=== PATIENT | female | born 2000 | race Caucasian/White ===

== ENCOUNTER 2024-05-08 02:07 | Outpatient (CLI) | payer OTHER, SELFPAY ==
[2024-05-08 15:13] LABS: Panorama Kit Sent via Fed Ex
[2024-05-08 15:18] LABS: Abs Immature Grans 0.03 10^3/uL (0.0-0.06); Absolute Basophil Count 0.03 10^3/uL (0.0-0.2); Absolute Eosinophil Count 0.09 10^3/uL (0.0-0.7); Absolute Lymphocyte Count 1.48 10^3/uL (1.2-3.4); Absolute Monocyte Count 0.37 10^3/uL (0.1-0.8); Absolute Neutrophil Count 7.73 10^3/uL (1.2-6.7); Basophils % 0.3 %; Eosinophils % 0.9 %; HCT 40.2 % (36.0-46.0); HGB 13.7 g/dL (11.2-15.7); Immature Grans % 0.3 %; Lymphocytes % 15.2 %; MCH 30.6 pg (27.0-33.0); MCHC 34.1 % (32.0-36.0); MCV 90 fL (80-95); MPV 10.4 fL (8.0-11.0); Monocytes % 3.8 %; Neutrophils % 79.5 %; Platelet Count 208 10^3/uL (130-400); RBC 4.47 10^6/uL (3.93-5.22); RDW 12.2 % (11.7-14.6); RDW-SD 40.2 fL; WBC 9.73 10^3/uL (4.4-10.8)
[2024-05-08 16:46] LABS: TSH (W/Ref FT4) 0.74 uIU/mL (0.36-3.74)
[2024-05-09 08:57] LABS: Hepatitis B Surface Ag Negative (Negative)
[2024-05-09 09:35] LABS: HIV-1/2 Ag & Ab Screen Negative (Negative)
[2024-05-09 09:46] LABS: Hepatitis C Ab w Rflx HCV PCR Negative (Negative)
[2024-05-09 10:28] LABS: Varicella IgG Antibody Positive (See Note)
[2024-05-09 10:31] LABS: Rubella IgG Ab (UVM) Negative (See Note)
[2024-05-10 20:26] LABS: Syphilis IgG w/Reflex Nonreactive (Nonreactive)
[2024-05-12 23:03] LABS: Specimen WB Whole Blood
[2024-05-30 17:52] LABS: Result Summary NEGATIVE; Specimen WB Whole Blood
== END 2024-05-08 02:08 | disposition home or self-care (01) ==
LOC: LBO 02:07
PROVIDERS: Visit Provider Advanced Practice Midwife
DX: Z34.91 Encounter for supervision of normal pregnancy, unspecified, first trimester (principal)
CPT/HCPCS: 36415; 81220; 81222; 81329; 86787; 86803; 86850; 86900; 86901; 87340; 87389; 84443; 85025; 86762; 86780

== ENCOUNTER 2024-05-08 13:44 | Outpatient (REF) | payer OTHER, SELFPAY ==
[2024-05-10 13:25] LABS: Chlamydia Result Negative (Negative); GC Result Negative (Negative)
== END 2024-05-08 13:45 | disposition home or self-care (01) ==
LOC: LBN 13:44
PROVIDERS: Visit Provider Advanced Practice Midwife
DX: Z34.91 Encounter for supervision of normal pregnancy, unspecified, first trimester (principal); Z11.3 Encounter for screening for infections with a predominantly sexual mode of transmission; Z3A.11 11 weeks gestation of pregnancy
CPT/HCPCS: 87491; 87591; 87086

== ENCOUNTER 2024-08-21 03:08 | Outpatient (CLI) | payer OTHER, SELFPAY ==
[2024-08-21 15:03] LABS: HCT 34.5 % (36.0-46.0); HGB 11.6 g/dL (11.2-15.7); MCHC 33.6 % (32.0-36.0); MCV 92 fL (80-95); MPV 10.5 fL (8.0-11.0); Platelet Count 164 10^3/uL (130-400); RBC 3.74 10^6/uL (3.93-5.22); RDW-SD 41.2 fL
[2024-08-21 15:51] LABS: Glucose,1 Hr (Glucola) 76 mg/dL (80-140)
== END 2024-08-21 03:09 | disposition home or self-care (01) ==
LOC: LBO 03:08
PROVIDERS: Visit Provider Advanced Practice Midwife
DX: Z34.92 Encounter for supervision of normal pregnancy, unspecified, second trimester (principal)
CPT/HCPCS: 36415; 82950; 85027

== ENCOUNTER 2024-10-25 15:46 | Outpatient (REF) | payer OTHER, SELFPAY | END 2024-10-25 15:47 | disposition home or self-care (01) | LOC: LBN 15:46 | PROVIDERS: Visit Provider Obstetrics & Gynecology Gynecology | DX: Z34.93 Encounter for supervision of normal pregnancy, unspecified, third trimester (principal) | CPT/HCPCS: 87186; 87081 ==

== ENCOUNTER 2024-11-16 16:00 | Outpatient (CLI) | payer OTHER, SELFPAY ==
[2024-11-16 16:55] VITALS: BP 122/70; PULSE 70; TEMP 36.4
[2024-11-16 17:00] VITALS: BP 122/70; PULSE 77
--- NOTE | 2024-11-16 17:41 | W.OBNST ---
Date of service: 11/16/24 Time of Service: 17:41 NST Evaluation Reason for NST Reasons for Nonstress Test: DECREASED MOVEMENT Gestational Age Gestational Age in Weeks and Days: 39 Weeks and 4Days Test and Monitor Explained Test/Monitor Explained: Test Explained, Monitor Explained and Patient Verbalized Understanding Vital Signs Blood Pressure: 122/70 Pulse: 70 Temperature: 97.6 F NST Information Date on Monitor: 11/16/24 Time on Monitor: 16:56 Date off Monitor: 11/16/24 Time off Monitor: 17:29 Total Time on Monitor: 33 NST Interventions: PO Hydration and Reposition Patient Contraction Frequency: 0 NST Evaluation Patient States Movement: Present FHR Baseline: 140 Variability: Moderate 6-25 bpm Accelerations: 15x15 Decelerations: None NST Results: Reactive Note Ultrasound Done: N/A. NST Note Note: Cx: 1/50/-2/soft. Pt reported mild headache but not too bad, could ignore it if busy. Feels tired, arms feel slightly swollen and tingly but able to do activities, worse in the am. No fever, sore throat, cough. No n/v. Had ctxs a few nights earlier this week but non last night or today. Reviewed signs of labor and reasons to call. Also discussed the possibility of a viral illness and supportive measures. Sent script for valtrex and recommend taking now as it wasn't started earlier. NST Reviewed and Verified by: Montse Reich
[2024-11-16 17:43] VITALS: BP 122/70; PULSE 70; TEMP 36.4
== END 2024-11-16 17:41 | disposition home or self-care (01) ==
LOC: BCD 16:03 → OBS 16:40
PROVIDERS: Visit Provider Obstetrics & Gynecology
DX: O36.8130 Decreased fetal movements, third trimester, not applicable or unspecified (principal); R51.9 Headache, unspecified; Z3A.39 39 weeks gestation of pregnancy
CPT/HCPCS: 59025

== ENCOUNTER 2024-11-20 03:20 | Outpatient (CLI) | payer OTHER, SELFPAY ==
[2024-11-20] VITALS (12 sets, daily range): BP systolic 98–118; BP diastolic 57–82; PULSE 71–79; RESP 16; TEMP 36.4; O2SAT 93–98
[2024-11-20 05:45] LABS: COVID-19 PCR Negative (Negative); Influenza A PCR Negative (Negative); Influenza B PCR Negative (Negative); RSV PCR Negative (Negative)
[2024-11-20 05:47] LABS: Source Nasopharynx
--- NOTE | 2024-11-20 12:37 | W.OBNST ---
Date of service: 11/20/24 Time of Service: 05:00 NST Evaluation Reason for NST Reasons for Nonstress Test: OTHER, SEE COMMENT Reason for NST Other: Headache Gestational Age Gestational Age in Weeks and Days: 40 Weeks and 1Days Test and Monitor Explained Test/Monitor Explained: Test Explained, Monitor Explained and Patient Verbalized Understanding Vital Signs Blood Pressure: 104/62 Pulse: 77 Temperature: 97.6 F Urine Results Urine Protein: Positive Urine Ketones: Positive Urine Glucose: Negative Urine Blood: Positive NST Information Date on Monitor: 11/20/24 Time on Monitor: 04:50 Date off Monitor: 11/20/24 Time off Monitor: 05:48 Total Time on Monitor: 58 NST Evaluation Patient States Movement: Present FHR Baseline: 120 Variability: Moderate 6-25 bpm Accelerations: 15x15 Decelerations: None NST Results: Reactive Note Ultrasound Done: N/A. NST Note Note: Normal BPs, neg for flu/covid. Pt dehydrated. Recommend fluids, rest, can take benadryl for sleep, magnesium for headache. Has appt tomorrow. NST Reviewed and Verified by: Montse Reich
== END 2024-11-20 06:13 | disposition other institution (70) ==
LOC: BCD 04:51 → OBS 05:03
PROVIDERS: Visit Provider Obstetrics & Gynecology
DX: O26.893 Other specified pregnancy related conditions, third trimester (principal); R51.9 Headache, unspecified; Z3A.40 40 weeks gestation of pregnancy
CPT/HCPCS: 59025; 87637

== ENCOUNTER 2024-11-21 07:14 | Outpatient (CLI) | payer OTHER, SELFPAY ==
[2024-11-21 07:56] VITALS: BP 117/75; PULSE 66; TEMP 36.5
[2024-11-21 08:07] VITALS: BP 117/75; PULSE 66
[2024-11-21 09:02] VITALS: BP 117/75; PULSE 66; TEMP 36.5
--- NOTE | 2024-11-21 09:02 | W.OBNST ---
Date of service: 11/21/24 Time of Service: 09:02 NST Evaluation Reason for NST Reasons for Nonstress Test: OTHER, SEE COMMENT Reason for NST Other: rule out labor Gestational Age Gestational Age in Weeks and Days: 40 Weeks and 2Days Test and Monitor Explained Test/Monitor Explained: Test Explained, Monitor Explained and Patient Verbalized Understanding Vital Signs Blood Pressure: 117/75 Pulse: 66 Temperature: 97.7 F Urine Results Urine Protein: Negative Urine Ketones: Negative Urine Glucose: Negative Urine Blood: Negative NST Information Date on Monitor: 11/21/24 Time on Monitor: 08:00 Date off Monitor: 11/21/24 Time off Monitor: 08:44 Total Time on Monitor: 44 NST Interventions: PO Hydration Contraction Frequency: irregular NST Evaluation Patient States Movement: Present FHR Baseline: 135 Variability: Moderate 6-25 bpm Accelerations: 15x15 Decelerations: None NST Results: Reactive Note Ultrasound Done: N/A. NST Note Note: Patient seen. Latent labor. Irregular contractions. No cervical dilation. Category 1, reactive NST. Offered therapeutic rest in hospital, or at home. All questions answered. NST Reviewed and Verified by: Erika Nolasco
== END 2024-11-21 09:26 ==
LOC: BCD 07:16 → OBS 07:55
PROVIDERS: Visit Provider Obstetrics & Gynecology
DX: O62.0 Primary inadequate contractions (principal); Z3A.40 40 weeks gestation of pregnancy
CPT/HCPCS: 59025

== ENCOUNTER 2024-11-22 01:26 | Inpatient (IN) | payer OTHER, SELFPAY ==
[2024-11-22] VITALS (44 sets, daily range): BP systolic 106–148; BP diastolic 55–87; PULSE 65–136; RESP 16–20; TEMP 36.5–36.8; O2SAT 87–100; BMI 40.6
--- NOTE | 2024-11-22 01:18 | HPE_ITS ---
Date of service: 11/22/24 Time of Service: 01:18 Assessment and Plan Assessment and plan (1) : Status: Acute Assessment and plan: Term , early active labor, 4 cm, 80%. Appropriate cervical change. Will use nitrous oxide initially for pain control. May request epidural for analgesia. Anticipate vaginal . (2) GBS (group B Streptococcus carrier), +RV culture, currently : Status: Acute Assessment and plan: Currently in active labor. Group B strep positive. Penicillin allergic. Clindamycin sensitive. OB-HPI Labor/Delivery History of Present Illness Reason for Visit: Labor Chief Complaint: Uterine Contractions (every 5 miniutes). MANSOOR Calculator Estimated Delivery Date Method Current WG Current Estimate 11/19/24 LMP (Certain) 40w 3d Other Estimates 11/19/24 Ultrasound #1 40w 3d Comments: Patient presented to the center early this morning with painful regular contractions approximately every 5 minutes. She had been evaluated yesterday morning for the same with contractions every 10 minutes with no significant cervical dilation. She did denies vaginal bleeding or loss of fluid. Baby's been moving and active. Patient is exhausted. She is group B strep positive with a penicillin allergy though her group B strep is sensitive to clindamycin. That was ordered for prophylaxis. She has no HSV prodrome or active lesions noted. History of Present Expected Delivery Route/Plan - MD PEDERSEN/elver Perez (has 2 teen boys, healthy) Rubella non-immune, offer MMR SILVINA Brock yes to circumcision Specific Issues/Plan 1. Desires cfDNA - neg, CF & SMA negative, declined AFP 2. 5P screen negative, PHQ9 score is 4 3. Hx narcolepsy, stopped Adderall, will monitor, taking it PRN. 4. 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 PCN rash in childhood, [place] [facility] [place] No appointments available until March, will do on-line consultation 5a. [facility] [place] Skin testing: no PCN allergy. Progess note scanned into chart. 6. GBS+ - Susceptible to Clindamycin Review of Systems All systems reviewed & are unremarkable except as noted in HPI and below Constitutional Constitutional: Reports as per HPI Eyes Eyes: Reports system reviewed and no additional complaints, except as documented ENT Ears, Nose, Mouth, and Throat: Reports system reviewed and no additional complaints, except as documented Cardiovascular Cardiovascular: Reports system reviewed and no additional complaints, except as documented Respiratory Respiratory: Reports system reviewed and no additional complaints, except as documented Gastrointestinal Gastrointestinal: Reports system reviewed and no additional complaints, except as documented Genitourinary Genitourinary: Reports as per HPI Musculoskeletal Musculoskeletal: Reports system reviewed and no additional complaints, except as documented Psychiatric Psychiatric: Reports system reviewed and no additional complaints, except as documented PFSH All Active Problems (Updated 11/22/24 @ 01:24 by Erika Nolasco DO) GBS (group B Streptococcus carrier), +RV culture, currently (Acute) Penicillin allergic, clindamycin sensitive Penicillin-induced allergic rash (Acute) Rubella non-immune status, antepartum (Acute) Narcolepsy (Acute) (Acute) History of herpes genitalis (Acute) Medical History (Updated 11/22/24 @ 01:24 by Erika Nolasco DO) Delayed menses Early stage of Herpes Chlamydia Anxiety Depression Asthma Family History Other Diabetes Thyroid disease Social History Smoking/Tobacco Use Status: Never Second Hand Exposure: No Smoking risk assessment performed?: Yes Alcohol Intake: never Drug use: Occasionally Substance use type: marijuana Household members: significant other 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[employer]) Sexually active: Yes Current gender identity: female What is your relationship status?: living with partner Panel score (0-1 are the most socially isolated patients): 1 What type of physical activity do you participate in: none Seatbelt use: always Helmet use: Yes Do you feel safe at home: Yes Do you feel safe in your relationship?: Yes Female Reproductive History Menstrual Age of Menarche: 10 control method: none History History 3 Para 0 Hx # Term Pregnancies 0 Multiple births 0 Hx # Pregnancies 0 Ectopic pregnancies 0 AB induced 1 Hx Number of Living Children 0 AB spontaneous 1 Meds Allergies and Home Medications Allergies Allergy/AdvReac Type Severity Reaction Status Date / Time Penicillins Allergy Mild Skin Rash Verified 11/13/24 14:40 Home Medications ?Medication ?Instructions ?Recorded ?Confirmed ?Type PNV 153-FA 400 mcg-om3 35 mg-dha 2 tab PO DAILY 06/05/24 11/21/24 History 25 mg-epa 5 mg-fish oil chew tablet ( Gummies) valacyclovir 1 gram tablet 1,000 mg PO DAILY #30 tabs 11/16/24 11/21/24 Rx zolpidem 5 mg tablet (Ambien) 5 mg PO QHS #4 tabs 11/21/24 11/21/24 Rx Exam Physical Exam Vital Signs Reviewed: Yes Constitutional Constitutional: moderate distress (Due to painful uterine contractions) Detailed Labor and Delivery Exam Dilation: 4 Effacement (%): 80 station: -1 Cervix position: posterior Consistency: soft Blanco Score: Cervical Points Exam 0 1 2 3 Dilation Closed 1-2cm 3-4 cm 5-6cm Effacement 0-30% 40-50% 60-70% 80% Consistency Firm Medium Soft Station -3 -2 -1,0 +1,+2 Position Posterior Mid Anterior BLANCO Score(Cervical Ripeness Score): 9 Amniotic Membrane Status: Intact Contraction Frequency(min): 4 Contraction Duration(sec): 60 Contraction Intensity: Moderate/Strong Fetus A Heart Rate Baseline: 140 Monitor Accelerations: Present Monitor Decelerations: None Variability: Moderate (6-25 BPM) Presentation: Cephalic Categories: Category I Est. Weight: 8 lb HEENT Exam HEENT Exam: Normal Neck Exam Neck Exam: Normal Respiratory Exam Respiratory Exam: Normal Cardiovascular Exam Cardiovascular Exam: Normal Abdominal Exam Abdominal Exam: Normal Exam Exam: Normal Extremities Exam Extremities Exam: Normal Back/Spine/Pelvis Exam Pelvis Adequate: Yes Skin Exam Skin Exam: Normal Neurological Exam Neurological Exam: Normal Risk Assessment Risk for Shoulder Dystocia Historical/Initial OB: NEGATIVE FOR: Pelvic Abnormality, Pre- BMI>30, Previous Shoulder Dystocia or Previous Macrosomia 36 Weeks: POSITIVE FOR: Maternal Weight Gain>40lbs Increased Risk?: No Date/Initial: KJ 11/22/2024 Delivery Plan @ 40 wks: Anticipate vaginal Risk for Pre-Eclampsia Date Initiated/Initials: not indicated, jk Yes, if one or more: NEGATIVE FOR: Hx Pre-E/Gest HTN, Chronic HTN, Multiple Gestation, Pre-gestational DM, Renal Disease, Systemic Lupus or APA Syndrome Yes, if 2 or more: POSITIVE FOR: Nulliparity; NEGATIVE FOR: Age>= 35 yrs, >10yr btwn pregnancies, BMI>30, ethinicty, Mother/Sister w/ Pre-E or Previous IUGR Risk for Post- Hemorrhage Initial: NEGATIVE FOR: Multiple Gestation, Previous PPH, Known Clotting Deficiency, Grand Multiparity or Anticoagulation At Risk?: No Counseled re: Active Management: Yes Date/Initials: BEBA 11/22/2024 Risks Reviewed Risks Reviewed Upon Admission: Yes
[2024-11-22] MEDS: CLINDAMYCIN 900 MG/50 ML BAG 50 MG IVPB ×2 (01:50→09:22)
[2024-11-22 01:52] LABS: HCT 37.1 % (36.0-46.0); HGB 12.1 g/dL (11.2-15.7); MCH 28.8 pg (27.0-33.0); MCHC 32.6 % (32.0-36.0); MCV 88 fL (80-95); MPV 10.9 fL (8.0-11.0); Platelet Count 186 10^3/uL (130-400); RDW 13.3 % (11.7-14.6); RDW-SD 43.2 fL; WBC 11.14 10^3/uL (4.4-10.8)
[2024-11-22] MEDS: Normal Saline Flush 10 ML SYR IVP ×2 (02:11→07:28)
--- NOTE | 2024-11-22 04:20 | W.PM.OBNL1 ---
Date of service: 11/22/24 Time of Service: 04:20 Objective Abnormal lab results 11/22/24 Range/Units 01:40 WBC 11.14 H (4.4-10.8) 10^3/uL Temp Pulse Resp BP Pulse Ox 97.9 F 71 17 117/78 98 11/22/24 01:59 11/22/24 02:10 11/22/24 01:59 11/22/24 02:10 11/22/24 01:59 Laboratory Results WBC 11.14 10^3/uL (4.4-10.8) H 11/22/24 01:40 RBC 4.20 10^6/uL (3.93-5.22) 11/22/24 01:40 Hgb 12.1 g/dL (11.2-15.7) 11/22/24 01:40 Hct 37.1 % (36.0-46.0) 11/22/24 01:40 MCV 88 fL (80-95) 11/22/24 01:40 MCH 28.8 pg (27.0-33.0) 11/22/24 01:40 MCHC 32.6 % (32.0-36.0) 11/22/24 01:40 RDW 13.3 % (11.7-14.6) 11/22/24 01:40 Plt Count 186 10^3/uL (130-400) 11/22/24 01:40 MPV 10.9 fL (8.0-11.0) 11/22/24 01:40 ABO/Rh O Positive 11/22/24 01:40 Antibody Screen NEGATIVE 11/22/24 01:40 Subjective Interval history since last seen: Contractions are stronger, more regular. Patient laboring with hydrotherapy in the tub and using nitrous oxide for pain relief. Doppler heart tones appropriate in the 140s. Anticipate ongoing labor progress and vaginal . Will check when desired. Patient has received 1 dose of antibiotics for group B strep prophylaxis, clindamycin. Results Hemoglobin/Hematocrit: Hgb 12.1 g/dL (11.2-15.7) 11/22/24 01:40 Hct 37.1 % (36.0-46.0) 11/22/24 01:40 Abnormal Lab Findings: Abnormal Labs 11/22/24 01:40 WBC 11.14 H
--- NOTE | 2024-11-22 05:25 | W.PM.OBNL1 ---
Date of service: 11/22/24 Time of Service: 05:26 Pelvic Exam Dilation: 8 Effacement (%): 0 station: 0 Cervix Position: posterior Consistency: soft Contractions Contraction Frequency(min): 3 Contraction Duration(sec): 60 Intensity: Strong Fetus A Monitor: Doppler Heart Rate Baseline: 140 Variability: Moderate (6-25 BPM) FHR Rhythm: Regular Assessment and Plan Assessment and plan (1) : Status: Acute Assessment and plan: Term , active labor, 8 cm dilated. Declines further analgesia. Using nitrous. Anticipate vaginal . (2) Normal labor: Status: Acute (3) GBS (group B Streptococcus carrier), +RV culture, currently : Status: Acute Objective Abnormal lab results 11/22/24 Range/Units 01:40 WBC 11.14 H (4.4-10.8) 10^3/uL Temp Pulse Resp BP Pulse Ox 97.9 F 71 17 117/78 98 11/22/24 01:59 11/22/24 02:10 11/22/24 01:59 11/22/24 02:10 11/22/24 01:59 Laboratory Results WBC 11.14 10^3/uL (4.4-10.8) H 11/22/24 01:40 RBC 4.20 10^6/uL (3.93-5.22) 11/22/24 01:40 Hgb 12.1 g/dL (11.2-15.7) 11/22/24 01:40 Hct 37.1 % (36.0-46.0) 11/22/24 01:40 MCV 88 fL (80-95) 11/22/24 01:40 MCH 28.8 pg (27.0-33.0) 11/22/24 01:40 MCHC 32.6 % (32.0-36.0) 11/22/24 01:40 RDW 13.3 % (11.7-14.6) 11/22/24 01:40 Plt Count 186 10^3/uL (130-400) 11/22/24 01:40 MPV 10.9 fL (8.0-11.0) 11/22/24 01:40 ABO/Rh O Positive 11/22/24 01:40 Antibody Screen NEGATIVE 11/22/24 01:40 Subjective Interval history since last seen: Patient seen and examined. Now out of the tub. Continues to use nitrous. Declines further pain control. Requesting cervical examination. Cervix is now 8 cm, 0 station, 80%. Results Hemoglobin/Hematocrit: Hgb 12.1 g/dL (11.2-15.7) 11/22/24 01:40 Hct 37.1 % (36.0-46.0) 11/22/24 01:40 Abnormal Lab Findings: Abnormal Labs 11/22/24 01:40 WBC 11.14 H
--- NOTE | 2024-11-22 06:38 | W.PM.OBNL1 ---
Date of service: 11/22/24 Time of Service: 06:38 Assessment and Plan Assessment and plan (1) Normal labor: Status: Acute Assessment and plan: Spontaneous rupture membranes for clear fluid at 6 AM. Continuing her labor. Again encouraged pain relief and analgesia. Would consider Pitocin augmentation (2) GBS (group B Streptococcus carrier), +RV culture, currently : Status: Acute Objective Abnormal lab results 11/22/24 Range/Units 01:40 WBC 11.14 H (4.4-10.8) 10^3/uL Temp Pulse Resp BP Pulse Ox 97.9 F 71 17 117/78 98 11/22/24 01:59 11/22/24 02:10 11/22/24 01:59 11/22/24 02:10 11/22/24 01:59 Laboratory Results WBC 11.14 10^3/uL (4.4-10.8) H 11/22/24 01:40 RBC 4.20 10^6/uL (3.93-5.22) 11/22/24 01:40 Hgb 12.1 g/dL (11.2-15.7) 11/22/24 01:40 Hct 37.1 % (36.0-46.0) 11/22/24 01:40 MCV 88 fL (80-95) 11/22/24 01:40 MCH 28.8 pg (27.0-33.0) 11/22/24 01:40 MCHC 32.6 % (32.0-36.0) 11/22/24 01:40 RDW 13.3 % (11.7-14.6) 11/22/24 01:40 Plt Count 186 10^3/uL (130-400) 11/22/24 01:40 MPV 10.9 fL (8.0-11.0) 11/22/24 01:40 ABO/Rh O Positive 11/22/24 01:40 Antibody Screen NEGATIVE 11/22/24 01:40 Subjective Interval history since last seen: Patient seen. Doing well. More uncomfortable with uterine contractions. Had spontaneous rupture of membranes for clear fluid approximately 6 AM. heart tones are 140s, good variability. Cervical exam unchanged 8 cm, occiput anterior. Offered further analgesia with epidural. At this point declines. Will reconsider. If no further progress or decreased frequency of contractions, Pitocin augmentation would be appropriate. Results Hemoglobin/Hematocrit: Hgb 12.1 g/dL (11.2-15.7) 11/22/24 01:40 Hct 37.1 % (36.0-46.0) 11/22/24 01:40 Abnormal Lab Findings: Abnormal Labs 11/22/24 01:40 WBC 11.14 H
--- NOTE | 2024-11-22 08:31 | ANES.PREOP_ITS ---
General Info Date of Service Date Performed: 11/22/24 Height: 5 ft 8 in Weight: 121.109 kg Body Mass Index (BMI): 40.6 Meds Allergies and Home Medications Allergies Allergy/AdvReac Type Severity Reaction Status Date / Time Penicillins Allergy Mild Skin Rash Verified 11/13/24 14:40 Home Medication ?Medication ?Instructions ?Recorded PNV 153-FA 400 mcg-om3 35 mg-dha 2 tab PO DAILY 06/05/24 25 mg-epa 5 mg-fish oil chew tablet ( Gummies) valacyclovir 1 gram tablet 1,000 mg PO DAILY #30 tabs 11/16/24 zolpidem 5 mg tablet (Ambien) 5 mg PO QHS #4 tabs 11/21/24 Current Visit Medications: Current Medications Generic Name Dose Route Start Last Admin Trade Name Freq PRN Reason Stop Dose Admin Fentanyl/Ropivacaine 200 ml 11/22/24 07:15 Fentanyl/Ropivacaine 2 Mcg/Ml And 0.1% 200 Ml Cadd Cassette EP DIRECTED ZACKERY Clindamycin Phosphate/Dextrose 900 mg in 50 mls @ 50 mls/hr 11/22/24 02:00 11/22/24 03:08 Cleocin In D5w IVPB Infused Q8H ZACKERY Infusion IV Miscellaneous Supplies 1 each 11/22/24 01:30 Iv Access IV DIRECTED [facility] IV Miscellaneous Supplies 1 each 11/22/24 01:30 Iv Access IV DIRECTED ZACKERY Sodium Chloride 0 ml 11/22/24 01:26 11/22/24 02:11 Normal Saline Flush 10 Ml Syr IVP 10 ml PRN PRN Administration Sodium Chloride 0 ml 11/22/24 08:30 Normal Saline Flush 10 Ml Syr IVP BID ZACKERY Sodium Chloride 0 ml 11/22/24 01:26 Normal Saline 10 Ml Vial IJ DIRECTED PRN PFSH Active Problems Active Problems: Problem Status Onset Code Normal labor Acute O80, Z37.9 GBS (group B Streptococcus carrier), +RV culture, currently Acute O99.820 Penicillin-induced allergic rash Acute L27.0, T36.0X5A Rubella non-immune status, antepartum Acute O09.899, Z28.39 Narcolepsy Acute G47.419 Acute Z34.90 History of herpes genitalis Acute Z86.19 Medical History Medical History (Updated 11/22/24 @ 05:27 by Erika Nolasco DO) Delayed menses Early stage of Herpes Chlamydia Anxiety Depression Asthma Tobacco Smoking/Tobacco Use Status: Never Passive smoking exposure: No Second hand exposure: No Alcohol Alcohol Intake: never Substance Use Substance use: Occasionally Substance use type: marijuana Prental History History 2 3 Para 0 Hx # Term Pregnancies 0 Multiple births 0 Hx # Pregnancies 0 Ectopic pregnancies 0 AB induced 1 Hx Number of Living Children 0 AB spontaneous 1 Vital Signs and Lab Results Vital Signs Most Recent Vital Signs in EMR: Most Recent Vital Signs Temp Pulse Resp BP Pulse Ox 36.5 C 98 H 20 140/85 87 L 11/22/24 07:08 11/22/24 08:28 11/22/24 07:08 11/22/24 08:27 11/22/24 08:28 Lab Results 11/22/24 01:40 Blood Type / Crossmatch: 2 Antibody Screen NEGATIVE 11/22/24 Complete Blood Count: 2 White Blood Count 11.14 10^3/uL (4.4-10.8) H 11/22/24 01:40 Red Blood Count 4.20 10^6/uL (3.93-5.22) 11/22/24 01:40 Hemoglobin 12.1 g/dL (11.2-15.7) 11/22/24 01:40 Hematocrit 37.1 % (36.0-46.0) 11/22/24 01:40 Platelet Count 186 10^3/uL (130-400) 11/22/24 01:40 Complete Metabolic Panel: 2 No Data to Display Liver Function Panel: 2 No Data to Display Coagulation Panel: 2 No Data to Display Cardiac Panel: 2 No Data to Display Arterial Blood Gas: 2 No Data to Display Venous Blood Gas: 2 No Data to Display Pancreas Panel: 2 No Data to Display Thyroid Panel: 2 No Data to Display Infectious Disease: 2 Coronavirus (COVID-19)(PCR) Negative (Negative) 11/20/24 04:50 Coronavirus 2019 Source Nasopharynx 11/20/24 04:50 Influenza Virus Type A (PCR) Negative (Negative) 11/20/24 04:5 0 Influenza Virus Type B (PCR) Negative (Negative) 11/20/24 04:5 0 Respiratory Syncytial Virus (PCR) Negative (Negative) 11/20/24 04:50 Blood Cultures: 2 No Data to Display Toxicology Panel: 2 No Data to Display Panel: 2 No Data to Display Anesthesia Assessment and Plan Anesthesia History Personal History: No History of Anesthesia Complications Family History: No Family History of Anesthesia Complications Exercise Tolerance Exercise Tolerance: Metabolic Equivalents>4 Pertinent Negatives Pertinent Negatives: No Major Cardiovascular Symptoms or Complaints and No Major Pulmonary Symptoms or Complaints Cardiac & Pulmonary Exam Cardiac Exam: Normal S1/S2 Heart Sounds Pulmonary Exam: Clear Bilateral Breath Sounds Implantable Cardiac Device Does patient have a Pacemaker or an ICD?: No Airway Exam Known Difficult Airway: No Mallampati Class: 3 Mouth Opening: Normal (> 3cm) Thyromental Distance: Greater than 3 cm Neck Range of Motion: Full ROM Neck Circumference: Normal Teeth Condition: Normal Dentition ASA Classification ASA Score: ASA 3 Emergency Case?: No NPO Status NPO Status: Full Stomach Status Status: Confirmed Anesthesia Plan Resuscitation Status: Full Code Anesthesia Technique: Epidural Anesthesia Airway Planned: Natural Airway Monitors Used: Standard Monitors
--- NOTE | 2024-11-22 08:33 | W.ANESNEU ---
Epidural/Spinal Catheter Date Performed: 11/22/24 Procedure Start: 07:35 Procedure Stop: 08:10 Requesting Provider: Erika Nolasco Procedure Location: Obstetrics Reason Performed: Labor Epidural Standard Monitors Applied: See EMR for corresponding vital signs Patient Position: Sitting Sedation Given (Indicate Dose Given): No Sedation given Patient Mental Status: Awake Sterility: Hand Hygiene, Surgical Cap, Surgical Mask, Sterile Gloves, Sterile Drape/Sheet and Chlorhexidine Procedure Location: L2-L3 Interspace Epidural Needle: Tuohy 18 Gauge Needle Length: 3.5 Inch Needle Approach: Midline Epidural Procedure: Skin Prepped, Sterile Drape Placed, 1% Lidocaine to skin and subcutaneous tissue with 25G needle, Tuohy Needle placed and Bone Contacted despite needle repositioning Catheter Placed?: Catheter Not Placed Paresthesia: Right Paresthesia Duration: Transient Ultrasound: Not Used Number of Attempts (See previous attempts in note section): 2 Procedure Tolerated: No Complications Procedure Outcome: Unsuccessful Procedure Comment:: First interspace LA administered and with first reposition of epidural needle patient reported she was going to pass out and procedure aborted. Dr. Nolasco to bedside with nursing staff, patient lying on side and tones obtained. Decision made to attempt epidural for a second time. Second attempt challenging due to elevated BMI and contact bone despite repositioning. Family wishes to abort epidural placement and transition to attempt intrathecal placement. During positioning for intrathecal, patient reports she felt something weird and Dr. Duncan checked patient and decision was made to abort all analgesic attempts and have patient attempt to push/deliver baby. Performed By: Sydni De Souza
[2024-11-22] MEDS: Hamamelis Leaf/Glycerin 100 EACH BOX PR (10:35)
[2024-11-22] MEDS: Dibucaine 1% 28 GM TUBE TP (10:35)
[2024-11-22] MEDS: Docusate Sodium 100 MG CAP PO ×2 (10:36→20:12)
[2024-11-22] MEDS: Ibuprofen 600 MG TAB PO ×2 (10:37→20:13)
[2024-11-22] MEDS: Acetaminophen 325 MG TAB 650 MG PO ×2 (10:37→20:11)
--- NOTE | 2024-11-22 11:49 | W.OBDELIVERY ---
Date of service: 11/22/24 Time of Service: 13:32 OB Labor/ Delivery Information Baby A Delivery Delivery Method: Assisted (vaccum) Presentation: Cephalic Cephalic Position: Vertex Vertex Position: Left Occipital Anterior Breech Position: N/A Cord Description-Baby A: 3 Vessels Amniotic Fluid: Meconium Estimated Blood Loss: 100 Delivery Outcome: Liveborn Complications: none Note: Umbilical arterial cord gas: pH 7.24, BE -5. Providers Doctor: Marie Duncan Supervisor [employer]: Shaina Goldberg Nurse: Edgardo Durham Nurse: Myla Rivera Other: Erika Nolasco MD Labor/Delivery Information Number of Babies in Womb: 1 Steroids Given: None Reason Steroids Not Administered: N/A Group Beta Strep: Positive Antibiotics Administered: Yes Rubella Status: Nonimmune Blood Type: O+ Varicella Immunity: Immune Medication in Delivery: Nitrous Oxide Maternal Complications: None Shoulder Dystocia: No Stages of Labor Complete Dilatation Date: 11/22/24 Complete Dilatation Time: 08:36 ROM Baby A: 11/22/24 ROM Baby A: 06:00 Infant Delivery Date-Baby A: 11/22/24 Delivery Time-Baby A: 09:46 Labor Stage 2 Duration: 1 hours and 10 minutes Placenta Delivery Date-Baby A: 11/22/24 Placenta Delivery Time-Baby A: 09:51 Labor-Stage 3 Duration: 5 minutes Placenta Status: Delivered Baby A Infant Gender: Male Gestational Status: Term (39-41.6 wks) (Name: Vinod) Gestational Age in Weeks/Days: 40 Weeks and 3 Days Score-1 Minute Interval(Baby A) Heart Rate-1 minute: 100 BPM or Greater Respiratory Effort- 1 minute: Spontaneous/Strong Cry Muscle Tone-1 minute: Active Movement Reflex Response-1 minute: Prompt Response Color-1 minute: Bluish Hands or Feet Total Score-1 minute: 9 Score-5 Minute Interval(Baby A) Heart Rate- 5 minute: 100 BPM or Greater Respiratory Effort-5 minute: Spontaneous/Strong Cry Muscle Tone-5 minute: Active Movement Reflex Response-5 minute: Prompt Response Color-5 minute: Bluish Hands or Feet Total Score- 5 minute: 9 Procedure Procedures: Cord Blood Collection (For Rh determination and Umbilical Cord Gases:) Interventions Pain Management Interventions: Comfort Measures, Epidural epidural placement not successful. Pt was 9cm dilated on exam so no intrathecal was offered. She pushed effectively with contractions. . and Nitrous Oxide , Used briefly when beginning transition phase of labor. Pt declined use after an hour of use. ./ Assisted Delivery Baby A , Type of Assisted Delivery: Vacuum Indication for Vacuum Assisted Delivery: Maternal Exhaustion, Date Applied: 11/22/24, Time of Application: 09:30, Reduction of Pressure Between Contractions: Yes, Number of Pulls: 3, Number of Pop Offs: 2, Number of Contractions: 4 09:30 After verbal consent obtained Kiwi cup was placed on vertex at +3 station. Over course of contraction three pulls were performed with 2 pop offs. Kiwi cup remained in place with pressure lowered between contractions. 09:34. Pull# 2. Over course of one contraction 3 pulls were performed with no pop offs. Fetus remained at +3 station. Kiwi cup removed from vertex. 09:36. Pull #3. Over course of one contraction 3pulls were performed with no pop offs. Kiwi cup removed at 09:39. Fetus vertex was brought to +5 station and pt was able to successfully deliver viable male infant over an intact perineum. :
[2024-11-23 07:40] VITALS: BP 134/78; PULSE 76; RESP 16; TEMP 36.7; O2SAT 97
[2024-11-23] MEDS: Ibuprofen 600 MG TAB PO ×2 (09:25→16:38)
[2024-11-23] MEDS: Acetaminophen 325 MG TAB 650 MG PO ×2 (09:25→16:39)
[2024-11-23] MEDS: Docusate Sodium 100 MG CAP PO (09:25)
[2024-11-23] MEDS: Prenatal Multivitamin w/CA,FE TAB 1 TAB PO (09:27)
--- NOTE | 2024-11-23 11:52 | W.PM.OBDISCH ---
Date of service: 11/23/24 Time of Service: 11:52 DS: Diagnosis Discharge Diagnosis (1) GBS (group B Streptococcus carrier), +RV culture, currently : Asessment and Plan: Pt received GBS prophylaxis while in labor. (2) Status post vacuum-assisted vaginal delivery: Status: Acute Discharge Plan Disposition Patient Disposition: Home Condition: Stable Discharge Details Reason For Visit: Labor Admit Date/Time: 11/22/24 01:26 Admit Provider: Erika Nolasco Attending Provider: Erika Nolasco Primary Care Provider: Unknown,Unknown Hospital Course Hospital Course: Pt was admitted at 40w3d EGA in active labor on11/22/24. A labor epidural was attempted but the anesthesia team was unable to thread the catheter. VAVD over intact perineum of viable male without complications. His parents plan to name him Vinod. She was discharged to home of PPD1 successfully . She will f/u in [facility] in 2w for maternal assessment. Instructed to take Ibuprofen and Acetaminophen for pain as needed. Home Meds and New Rx's Prescriptions: No Action Gummies 400 mcg-35 mg- 25 mg-5 mg tablet,chewable 2 tab PO DAILY valacyclovir 1 gram tablet 1,000 mg PO DAILY Qty: 30 0RF zolpidem [Ambien] 5 mg tablet 5 mg PO QHS Qty: 4 0RF Rx Instructions: 1 p.o. for sleep, may repeat x 1 Discharge Instructions Additional Instructions: Over the counter Ibuprofen for pain. Take 3 tablets of 200mg over the counter Ibuprofen every 6 hours as needed for pain.l Stand Alone Forms: BC Instructions, BC Post Vaginal Deliver Activity:: Activity as Tolerated Equipment/Supplies:: No Equipment Needed Diet:: As Tolerated Discharge Orders Discharge Orders: Discharge Order (Routine); Ordered 11/23/24 Ordered By: Marie Duncan OB:DS Summary Summary Vaginal Delivery Method: Assisted (vaccum) Episiotomy Description: None Laceration Description: None Laceration Extension: N/A Contraception Discussed Contraception Discussed: No, Rozet Gender-Baby A: Male weight: 7 lb 3.699 oz Disposition of Baby A: Home Status at Discharge Functional status at discharge: independent ambulation Overall status at discharge: patient is progressing back to baseline Mental Status: mental status grossly normal Speech and Movement: speech and movement normal Mood: congruent mood Affect: normal affect Time Spent with Patient providing and/or coordinating discharge services: Less than 30 minutes Quality:SDOH Health Related Social Needs: No Data to Display Exam Physical Exam Vital signs: Temp Pulse Resp BP Pulse Ox 97.9 F 76 16 121/74 98 11/22/24 15:45 11/22/24 15:45 11/22/24 15:45 11/22/24 15:45 11/22/24 15:45 Vital Signs Reviewed: Yes Narrative: PPD1 s/p VAVD of viable male infant over intact perineum. Pt has been successfully . Minimal perineal pain. OK with discharge to home today. Constitutional Constitutional: no acute distress Neck Exam Neck Exam: Normal Respiratory Exam Respiratory Exam: Normal Cardiovascular Exam Cardiovascular Exam: Normal Abdominal Exam Comments: No focal abdominal tenderness. Fundal Exam Fundus: Below Umbilicus and Firm Rectal Exam Rectal Exam: Not Done Extremities Exam Extremity Exam: Normal Skin Exam Skin Exam: Normal Neurological Exam Neurological Exam: Normal Psychiatric Exam Psychiatric Exam: Normal PFSH All Active Problems (Updated 11/22/24 @ 13:46 by Marie Duncan MD) Status post vacuum-assisted vaginal delivery (Acute) Penicillin-induced allergic rash (Acute) Rubella non-immune status, antepartum (Acute) Narcolepsy (Acute) (Acute) History of herpes genitalis (Acute) Medical History (Updated 11/22/24 @ 13:46 by Marie Duncan MD) GBS (group B Streptococcus carrier), +RV culture, currently Penicillin allergic, clindamycin sensitive Delayed menses Early stage of Herpes Chlamydia Anxiety Depression Asthma Family History Other Diabetes Thyroid disease Social History Smoking/Tobacco Use Status: Never Second Hand Exposure: No Smoking risk assessment performed?: Yes Alcohol Intake: never Drug use: Occasionally Substance use type: marijuana Household members: significant other 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[employer]) Sexually active: Yes Current gender identity: female What is your relationship status?: living with partner Panel score (0-1 are the most socially isolated patients): 1 What type of physical activity do you participate in: none Seatbelt use: always Helmet use: Yes Do you feel safe at home: Yes Do you feel safe in your relationship?: Yes Female Reproductive History Menstrual Age of Menarche: 10 control method: none History History 3 Para 0 Hx # Term Pregnancies 0 Multiple births 0 Hx # Pregnancies 0 Ectopic pregnancies 0 AB induced 1 Hx Number of Living Children 0 AB spontaneous 1 Past Pregnancies Del. Date GA/Weeks # Preg Succ Route Wgt Sex Labor Lgth Anesthesia Location Prov [facility] 11/22/24 40 No Yes vaginal 7 lb 3.699 oz Male KJ/aoc Delivery Date: 11/22/24 Last Updated by: Marie Duncan MD Vacuum assist 2/2 maternal exhaustion. Vinod DS: Data Vitals/I&O Vitals and I&O: Vital Signs Temperature 97.9 F 11/22/24 15:45 Temperature Source Oral 11/22/24 15:45 Pulse 76 11/22/24 15:45 Pulse Rhythm Regular 11/23/24 04:12 Respiratory Rate 16 11/22/24 15:45 Blood Pressure 121/74 11/22/24 15:45 Blood Pressure Mean 89 11/22/24 15:45 Pulse Oximetry 98 11/22/24 15:45 Oxygen Delivery Method Room Air 11/22/24 01:59 Oxygen Flow Rate 0 11/22/24 01:59 Pain Level 5 11/23/24 09:25 Intake & Output 11/22/24 11/22/24 11/23/24 11:59 23:59 11:59 Intake Total 71.667 / 71.667 Output Total 300 / 1500 1200 / 1500 Balance -228.333 / -1428.333 -1200 / -1428.333 Weight 267 lb Intake: IV 71.667 / 71.667 Output: Urine 300 / 1500 1200 / 1500 Other: Urine Color Watson Watson Watson Urine Appearance Clear Urine Odor None None
[2024-11-23 13:15] VITALS: BP 110/58; PULSE 87; RESP 16; TEMP 36.6; O2SAT 98
[2024-11-23 19:35] VITALS: BP 112/58; PULSE 85; RESP 17; TEMP 36.6; O2SAT 98
--- NOTE | 2024-11-24 08:14 | OBPPV_ITS ---
Date of service: 11/24/24 Time of Service: 08:14 Assessment and Plan Assessment and plan (1) Status post vacuum-assisted vaginal delivery: Status: Acute Assessment and plan: day #2 status post vacuum-assisted vaginal of a viable male infant. Doing well. Discharge home today. Follow-up in the office in 2 and 6 weeks. All questions answered. Subjective Subjective Interval history: Patient seen and examined this morning. Doing well. Breast-feeding without difficulty. Had a 4-hour stretch of sleep which was helpful last night. She would anticipate discharge home today. Baby has been circumcised. Breast- feeding is going well. Exam Physical Exam Vital signs: Temp Pulse Resp BP Pulse Ox 97.9 F 85 17 112/58 L 98 11/23/24 19:35 11/23/24 19:35 11/23/24 19:35 11/23/24 19:35 11/23/24 19:35 Vital Signs Reviewed: Yes Constitutional Constitutional: no acute distress HEENT Exam HEENT Exam: Normal Neck Exam Neck Exam: Normal Respiratory Exam Respiratory Exam: Normal Cardiovascular Exam Cardiovascular Exam: Normal Fundal Exam Comment: Soft Extremities Exam Extremity Exam: Normal; negative Calf Tenderness Back/Spine/Pelvis Exam Back Exam: Normal Skin Exam Skin Exam: Normal Neurological Exam Neurological Exam: Normal Psychiatric Exam Psychiatric Exam: Normal Results Hemoglobin/Hematocrit: Hgb 12.1 g/dL (11.2-15.7) 11/22/24 01:40 Hct 37.1 % (36.0-46.0) 11/22/24 01:40 Abnormal Lab Findings: Abnormal Labs 11/22/24 01:40 WBC 11.14 H
[2024-11-24 09:02] VITALS: BP 121/75; PULSE 66; RESP 20; TEMP 36.6; O2SAT 96
[2024-11-24] MEDS: Prenatal Multivitamin w/CA,FE TAB 1 TAB PO (09:10)
[2024-11-24] MEDS: valACYclovir 1,000 MG TAB 1000 MG PO (09:11)
[2024-11-24] MEDS: Acetaminophen 325 MG TAB 650 MG PO (09:11)
[2024-11-24] MEDS: Ibuprofen 600 MG TAB PO (09:11)
== END 2024-11-24 10:25 | disposition home or self-care (01) | DRG 806 ==
PROVIDERS: Admitting Provider Obstetrics & Gynecology; Visit Provider Obstetrics & Gynecology
DX: O99.824 Streptococcus B carrier state complicating childbirth (principal); O98.32 Other infections with a predominantly sexual mode of transmission complicating childbirth; Z37.0 Single live birth; Z3A.40 40 weeks gestation of pregnancy; G47.419 Narcolepsy without cataplexy; O99.354 Diseases of the nervous system complicating childbirth; O99.52 Diseases of the respiratory system complicating childbirth; O99.344 Other mental disorders complicating childbirth; F41.8 Other specified anxiety disorders; J45.909 Unspecified asthma, uncomplicated; O75.81 Maternal exhaustion complicating labor and delivery; O77.0 Labor and delivery complicated by meconium in amniotic fluid
CPT/HCPCS: 85027; 86850; 86900; 86901; J0665; J0737

== ENCOUNTER 2025-02-02 11:01 | Outpatient (REF) | payer OTHER, SELFPAY ==
--- NOTE | 2025-02-02 11:00 | PAPFT_PTH ---
PATIENT: Chauncey Tamayo LOC: [facility] U#:[id number] AGE/SX: 24/F ROOM: RE02/02/[address]: Erika Nolasco DO : 2000 BED: DIS: 02/02/2025 SPEC #: [id number] RECD: 02/02/25 13:05 STATUS: SOUT REQ #: [id number] JUANI: 02/02/25 11:[address]: Erika Nolasco DEPT: [facility] Cytology RECD BY: Idania Lin ENTERED: 02/02/25 13:05 SP TYPE: PAPFT OTHR DR: Unknown,Unknown Tissues: 1 - CX/ENDOCX FOR PAP SMEARS Procedures: PAP THIN PREP/UVM Screening HPV DNA PROBE Comments: [id number] (HPV 16 & 18/45)
== END 2025-02-02 11:02 | disposition home or self-care (01) ==
LOC: LBN 11:01
PROVIDERS: Visit Provider Obstetrics & Gynecology
DX: Z12.4 Encounter for screening for malignant neoplasm of cervix (principal)
CPT/HCPCS: 88142; 87624